=== PATIENT | female | born 1945 | race Caucasian/White ===

== ENCOUNTER 2022-11-20 16:18 | Emergency (ER) | payer MEDICARE, SELFPAY ==
[2022-11-20 16:23] VITALS: BP 142/78; PULSE 52; RESP 12; TEMP 37.1; O2SAT 99; BMI 23.8
[2022-11-20 17:13] LABS: Internal Control Within Normal Limits; Strep A Antigen Screen Negative
--- NOTE | 2022-11-20 17:24 | ED.GENADUL1 ---
HPI - General Adult General Chief complaint: Upper Respiratory Infection Stated complaint: SORE THROAT Time Seen by Provider: 11/20/22 16:30 History of Present Illness HPI narrative: Patient has been taking azithromycin daily for months to treat my stomach , per her PCP's orders. She developed pain in the mouth and throat and her PCP started her on nystatin on 11/15/22. She said that she is not feeling any better and the throat continues to be painful. She is not eating and drinking normally and her throat and mouth are dry. No fever or chills. No vomiting or diarrhea. She cannot tell me what condition the PCP is treating with the azithromycin. The patient does not take probiotics. Related Data Previous Rx's Medication Instructions Recorded fluconazole 150 mg tablet 150 mg PO QWEEK 2 doses #2 tabs 11/20/22 (Diflucan) Allergies Allergy/AdvReac Type Severity Reaction Status Date / Time No Known Drug Allergies Allergy Verified 11/20/22 16:28 Exam Narrative Exam Narrative: Nurses notes and vital signs reviewed and patient is not hypoxic. afebrile General: Well-appearing and in no apparent distress. Skin: Warm, dry, no pallor noted. No rash. Head: Normocephalic, atraumatic. Neck: Supple, non-tender. no lymphadenopathy. Eye: Pupils are equal, round and EOMI. No scleral icterus. Ears, Nose, Mouth, and Throat: TM are clear, no nasal mucosal hypertrophy. Oral mucosa is moist, uvula is mid-line. Mild to moderate posterior oropharynx erythema with some white residue on the throat and tongue consistent with thrush. No ulcerative lesions are noted on the tongue or inner oral mucosa. Cardiovascular: Regular Rate and Rhythm without murmur, gallop or rub. Respiratory: No accessory muscle use or respiratory distress. Lungs are clear to auscultation, no wheezing, rales or rhonchi Neurological: A&O x4. No cranial nerve dysfunction observed. No truncal ataxia. Moves all extremities. Sensation intact. Psychiatric: Cooperative and interactive. Normal mood and affect. Constitutional Vital Signs - 24 hr 11/20/22 16:23 Temperature 98.7 F Pulse Rate [Monitor] 52 L Respiratory Rate 12 Blood Pressure [Left Arm] 142/78 H Pulse Oximetry 99 Oxygen Delivery Method Room Air Course Vital Signs Vital signs: Vital Signs Temperature 98.7 F 11/20/22 16:23 Pulse Rate 52 L 11/20/22 16:23 Respiratory Rate 12 11/20/22 16:23 Blood Pressure 142/78 H 11/20/22 16:23 Pulse Oximetry 99 11/20/22 16:23 Oxygen Delivery Method Room Air 11/20/22 16:23 Temperature 98.7 F 11/20/22 16:23 Pulse Rate 52 L 11/20/22 16:23 Respiratory Rate 12 11/20/22 16:23 Blood Pressure 142/78 H 11/20/22 16:23 Pulse Oximetry 99 11/20/22 16:23 Oxygen Delivery Method Room Air 11/20/22 16:23 Medical Decision Making MDM Narrative Medical decision making narrative: the patient has been on long-term daily erythromycin use. This is resulted in thrush. She has been using nystatin but not getting relief. Patient has not been eating and drinking appropriately, resulting in further throat and mouth dryness. I ordered the patient to receive oral Diflucan and also to get magic mouthwash in the ED. I prescribed additional magic mouthwash and another diflucan pill that is to be taken in 5 days. 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 I also talked with the patient and her daughter about probiotic use to improve the patient's gut health. NOTE - strep screen was negative Lab Data Lab results reviewed: Yes I reviewed the patient's lab results Labs: Lab Results 11/20/22 Range/Units 16:27 Streptococcus Screen Negative Discharge Plan Discharge Chief Complaint: Upper Respiratory Infection Clinical Impression: Thrush Patient Disposition: Home, Self-Care Time of Disposition Decision: 17:33 Prescriptions / Home Meds: New fluconazole [Diflucan] 150 mg tablet 150 mg PO QWEEK Qty: 2 0RF Rx Instructions: first dose 11/24/22 and may repeat second dose 12/01/22 if symptoms persist Instructions: Oral Candidiasis (ED) Additional Instructions: Patient to increase oral intake of fluids Stand Alone Forms: Portal Instructions Referrals: BONITA HOWARD [Primary Care Provider] - 1 week
[2022-11-20] MEDS: FLUCONAZOLE 150 MG TABLET PO (17:51)
[2022-11-20] MEDS: lidocaine HCL 15 ML, MAG HYDROX/ALUMINUM HYD/SIMETH 30 ML, diphenhydrAMINE HCL 30 MG PO (17:52)
== END 2022-11-20 17:53 | disposition home or self-care (01) ==
PROVIDERS: Emergency Provider Emergency Medicine; PCP Internal Medicine
DX: B37.0 Candidal stomatitis (principal)
CPT/HCPCS: 87070; 87880; 99283